=== PATIENT | male | born 1980 | race Caucasian/White ===

== ENCOUNTER 2021-03-19 17:44 | Emergency (ER) | payer OTHER ==
[~2021-03-19] VITALS: Ht 188 cm; Wt 77.1 kg
[2021-03-19] MEDS ORDERED: ONDANSETRON 4 MG/2 ML VIAL IM ONE (18:15)
--- NOTE | 2021-03-19 18:17 | NUR ---
Patient is resting on gurney while using his personal electronic device, +nausea, MD notified.
--- NOTE | 2021-03-19 18:18 | NUR ---
Dr Cook changed IM Zofran 8mg to IV
[2021-03-19] MEDS ORDERED: ONDANSETRON 4 MG/2 ML VIAL ONE (18:33)
[2021-03-19 18:39] LABS: HEMATOCRIT 47.8 % (36.7-47.1); MEAN CORPUSCULAR HEMOGLOBIN 31.5 uug (23.8-33.4); MEAN CORPUSCULAR VOLUME 90.9 fL (73.0-96.2); PLATELET COUNT (AUTO) 343 K/uL (152-348)
[2021-03-19 18:47] LABS: CARBON DIOXIDE 27 mmol/L (21-32); CHLORIDE 101 mmol/L (98-107); GLUCOSE 120 mg/dL (74-106); POTASSIUM 3.5 mmol/L (3.5-5.1); UREA NITROGEN, BLOOD 4 mg/dL (7-18)
[2021-03-19 18:51] LABS: ETHANOL 158 MG/DL (0-0)
[2021-03-19 18:52] LABS: ALANINE AMINOTRANSFERASE 26 U/L (16-63); ALKALINE PHOSPHATASE 109 U/L (50-136); ASPARTATE AMINOTRANSFERASE 21 U/L (15-37); BILIRUBIN,DIRECT 0.1 mg/dL (0.0-0.2); BILIRUBIN,TOTAL 0.7 mg/dL (0.2-1.0); TOTAL PROTEIN, SERUM 7.9 g/dL (6.4-8.2)
[2021-03-19] MEDS: ONDANSETRON 4 MG/2 ML VIAL IV ONE (18:53)
[2021-03-19 18:54] LABS: ACETAMINOPHEN < 2.0 ug/mL (10-30)
[2021-03-19] MEDS: IV NORMAL SALINE 1000 ML BAG IV ONE (18:54)
--- NOTE | 2021-03-19 19:22 | NUR ---
Pending urine specimen, SBAR to GAY Santiago.
--- NOTE | 2021-03-19 19:24 | NUR ---
RECEIVED REPORT FROM GAY VIGIL. PT NOTED TO BE IN [place] IN NO DISTRESS. DENIES PAIN/DISCOMFORT. NO SOB OR LABORED BREATHING. NO N/V/D.
[2021-03-19] MEDS: diphenhydrAMINE 50 MG/1 ML VIAL IV ONE (23:09)
[2021-03-19] MEDS: METOCLOPRAMIDE HCL 10 MG/2 ML VIAL IV ONE (23:11)
[2021-03-19] MEDS ORDERED: diphenhydrAMINE 50 MG/1 ML VIAL ONE (23:14)
[2021-03-19] MEDS ORDERED: METOCLOPRAMIDE HCL 10 MG/2 ML VIAL ONE (23:15)
--- NOTE | 2021-03-19 23:40 | NUR ---
PT RESTING COMFORTABLY IN BED. EYES CLOSED. VITALS STABLE.
--- NOTE | 2021-03-20 02:06 | NUR ---
PT AMBULATED TO RESTROOM, STEADY GAIT.
--- NOTE | 2021-03-20 02:20 | NUR ---
Patient discharged to home in stable condition. Written and verbal after care instructions given. Patient verbalizes understanding of instructions. Stressed follow up or return to ER for worsening s/s. Steady gait. Denies ALEJANDRO/dizziness. No n/v/d. Denies any pain/discomfort upon discharge. A/O x4. Picked up by family.
[2021-03-20 02:22] VITALS: BP 144/89
== END 2021-03-20 02:22 | disposition home or self-care (01) ==
LOC: ER 17:44
DX: T40.411A Poisoning by fentanyl or fentanyl analogs, accidental (unintentional), initial encounter (principal); R11.2 Nausea with vomiting, unspecified; F10.129 Alcohol abuse with intoxication, unspecified; F14.129 Cocaine abuse with intoxication, unspecified; Y92.89 Other specified places as the place of occurrence of the external cause; F31.9 Bipolar disorder, unspecified; R82.90 Unspecified abnormal findings in urine; D72.829 Elevated white blood cell count, unspecified; Z81.8 Family history of other mental and behavioral disorders; R55 Syncope and collapse; R03.0 Elevated blood-pressure reading, without diagnosis of hypertension
CPT/HCPCS: 70030-TC; 71045; 85025; 93005; A4663; G0480; J1200; J2405; J2765; J7030

== ENCOUNTER 2021-08-08 00:05 | Emergency (ER) | payer OTHER ==
[~2021-08-08] VITALS: Ht 188 cm; Wt 79.4 kg
--- NOTE | 2021-08-08 00:17 | NUR ---
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 Patient states that he had cocaine and alcohol
[2021-08-08] MEDS ORDERED: IV NORMAL SALINE 1000 ML BAG IV ONE (00:30)
[2021-08-08 00:41] LABS: MEAN CORPUSCULAR HEMOGLOBIN 31.2 uug (23.8-33.4); MEAN CORPUSCULAR VOLUME 88.3 fL (73.0-96.2); PLATELET COUNT (AUTO) 315 K/uL (152-348)
[2021-08-08] MEDS ORDERED: THIAMINE HCL 100 MG TABLET PO ONE (00:45)
[2021-08-08 00:46] LABS: MAGNESIUM 2.2 mg/dL (1.8-2.4)
[2021-08-08 00:48] LABS: CARBON DIOXIDE 27 mmol/L (21-32); CHLORIDE 101 mmol/L (98-107); CREATININE 1.1 mg/dL (0.6-1.3); GLUCOSE 136 mg/dL (74-106); POTASSIUM 3.6 mmol/L (3.5-5.1); UREA NITROGEN, BLOOD 7 mg/dL (7-18)
[2021-08-08] MEDS ORDERED: THIAMINE HCL 100 MG TABLET ONE (00:53)
[2021-08-08 01:02] LABS: ALANINE AMINOTRANSFERASE 26 U/L (16-63); ALKALINE PHOSPHATASE 91 U/L (50-136); ASPARTATE AMINOTRANSFERASE 17 U/L (15-37); BILIRUBIN,DIRECT 0.2 mg/dL (0.0-0.2); BILIRUBIN,TOTAL 0.5 mg/dL (0.2-1.0); TOTAL PROTEIN, SERUM 8.1 g/dL (6.4-8.2)
[2021-08-08] MEDS ORDERED: KETOROLAC TROMETHAMINE 30 MG INJ ONE (01:27)
[2021-08-08] MEDS ORDERED: KETOROLAC TROMETHAMINE 30 MG INJ IVP ONE (01:30)
[2021-08-08 01:35] LABS: *BILIRUBIN,URIN NEGATIVE (NEGATIVE); *BLOOD, URINE NEGATIVE (NEGATIVE); *CLARITY,URINE CLEAR (CLEAR); *KETONES,URINE NEGATIVE (NEGATIVE); *UROBILINOGEN,URINE 0.2 E.U./dl (NORMAL); LEUKOCYTE ESTERASE ,URINE NEGATIVE (NEGATIVE); NITRITE, URINE NEGATIVE (NEGATIVE); UGLUCOSE NEGATIVE (NEGATIVE)
[2021-08-08 01:36] LABS: *COLOR,URINE STRAW (YELLOW)
[2021-08-08 01:56] LABS: *AMPHETAMINE, URINE NEGATIVE (NEGATIVE); *CANNABINOID, URINE NEGATIVE (NEGATIVE); *COCCAINE, URINE POSITIVE (NEGATIVE); *OPIATE, URINE NEGATIVE (NEGATIVE); *PHENCYCLIDINE SCREEN,URINE NEGATIVE (NEGATIVE)
--- NOTE | 2021-08-08 02:56 | NUR ---
patient refused repeat lactic
--- NOTE | 2021-08-08 03:00 | NUR ---
Patient discharged to home in stable condition. Written and verbal after care instructions given. Patient verbalizes understanding of instructions. Stressed follow up or return to ER for worsening s/s. Patient is A/Ox4, no SOB, no CP, no distress noted.
[2021-08-08 03:02] VITALS: BP 135/76
== END 2021-08-08 03:00 | disposition home or self-care (01) ==
LOC: ER 00:18
DX: T40.5X1A Poisoning by cocaine, accidental (unintentional), initial encounter (principal); R00.0 Tachycardia, unspecified; F14.90 Cocaine use, unspecified, uncomplicated; F10.99 Alcohol use, unspecified with unspecified alcohol-induced disorder; Y90.3 Blood alcohol level of 60-79 mg/100 ml; Y92.89 Other specified places as the place of occurrence of the external cause
CPT/HCPCS: 36415; 71045; 80048; 80076; 80307; 80320; 81003; 83605; 83735; 84484; 85025; 85379; 93005; 96361; 96374; 99285; J1885; J7040; A4663; G0480

== ENCOUNTER 2021-09-09 08:12 | Emergency (ER) | payer OTHER ==
[~2021-09-09] VITALS: Ht 188 cm; Wt 79.4 kg
[2021-09-09] MEDS ORDERED: IV NORMAL SALINE 1000 ML BAG IV ONE (08:30)
[2021-09-09] MEDS ORDERED: LORAZEPAM 2 MG/1 ML VIAL IV ONE (08:30)
[2021-09-09 08:34] LABS: HEMATOCRIT 47.5 % (36.7-47.1); MEAN CORPUSCULAR HEMOGLOBIN 31.7 uug (23.8-33.4); MEAN CORPUSCULAR VOLUME 90.1 fL (73.0-96.2); PLATELET COUNT (AUTO) 328 K/uL (152-348)
[2021-09-09] MEDS ORDERED: LORAZEPAM 2 MG/1 ML VIAL ONE (08:41)
[2021-09-09 08:48] LABS: MAGNESIUM 2.1 mg/dL (1.8-2.4); PHOSPHOROUS 3.3 mg/dL (2.5-4.9)
--- NOTE | 2021-09-09 09:27 | NUR ---
PT IS IN ROOM #2B. DR LINDA EVALUATED THE PT.
[2021-09-09 11:36] LABS: CARBON DIOXIDE 25 mmol/L (21-32); CHLORIDE 100 mmol/L (98-107); GLUCOSE 77 mg/dL (74-106); POTASSIUM 4.5 mmol/L (3.5-5.1); UREA NITROGEN, BLOOD 5 mg/dL (7-18)
--- NOTE | 2021-09-09 13:24 | NUR ---
PT WAS D/C'd TO HOME. D/C INSTRUCTIONS GIVEN TO THE PT BY DR LINDA.
[2021-09-09 13:27] VITALS: BP 121/77
== END 2021-09-09 13:28 | disposition home or self-care (01) ==
LOC: ER 08:12
DX: T40.5X1A Poisoning by cocaine, accidental (unintentional), initial encounter (principal); R00.2 Palpitations; F14.129 Cocaine abuse with intoxication, unspecified; Y92.89 Other specified places as the place of occurrence of the external cause; I45.10 Unspecified right bundle-branch block; F10.129 Alcohol abuse with intoxication, unspecified; Y90.4 Blood alcohol level of 80-99 mg/100 ml; F19.10 Other psychoactive substance abuse, uncomplicated; F31.9 Bipolar disorder, unspecified
CPT/HCPCS: 36415; 71045; 80048; 80320; 83735; 84100; 84484 ×2; 85025; 93005; 96361; 96374; 99285; J2060; J7040; A4663; G0480